=== PATIENT | male | born 1995 | race Caucasian/White ===

== ENCOUNTER 2024-03-04 12:15 | Emergency (ER) | payer SELFPAY ==
[2024-03-04] VITALS (22 sets, daily range): BP systolic 138–217; BP diastolic 60–87; PULSE 65–121; RESP 12–23; TEMP 37.2–37.3; O2SAT 86–100
--- NOTE | 2024-03-04 12:15 | RT.EKG_ITS ---
APPROVED REPORT Exam: Resting ECG Reason for Exam: chest pain Patient Location: E HR:120 bpm ECG Measurements Heart Rate 120 AXIS PA 161 P 66 QRSd 97 QRS 18 QT 326 T 28 QTc 461 Conclusion Sinus tachycardia...rate> 99 sinus tachycadrida, normal axis, normal intervals, non sichemic
--- NOTE | 2024-03-04 12:15 | DI.CT_ITS ---
Exam(s) CT CHEST PE CTA EXAM: CT CHEST PE CTA CLINICAL HISTORY: syncope, tachycardia, chest pain. TECHNIQUE: Imaging Protocol: Axial CT angiography was performed with multi-slice acquisition and mu lti-planar and/or 3D reconstructions. CONTRAST MATERIAL: Intravenous: Omnipaque 350 contrast volume:150 mL COMPARISON: No exams were available for comparison FINDINGS: Tracheobronchial tree: Patent where visualized. Pulmonary parenchyma: No consolidation or dominant measurable mass. No architectural distortion. Pulmonary Arteries: There is suboptimal enhancement of the pulmonary arteries secondary to bolus janet ng. The central pulmonary arteries show no large pulmonary embolism. The segmental and subsegmental pulmonary arteries are not well opacified. Mediastinum and Jodie: No dominant adenopathy or fluid collection. The esophagus is unremarkable. Visualized thyroid gland: Unremarkable. Pleura: No effusion or pneumothorax. Heart: The heart is not dilated. No coronary artery calcifications are seen. No pericardial effusion. Aorta: Thoracic aorta non-dilated. No evidence of dissection. Upper abdomen: Cholelithiasis. Soft tissues: Unremarkable. Bones: Within normal limits for the patient's age. IMPRESSION: 1. There is suboptimal enhancement of the pulmonary arteries. No large central pulmonary embolus is seen. No evidence of right heart strain. 2. No acute pulmonary process. 3. Cholelithiasis. RADIATION DOSE DELIVERED: 616.62mGy.cm Total DLP DATA REPOSITORY: All CT scans at this facility are submitted to the National Radiology Data Registry (NRDR) Dose Index Registry (DIR) with the [employer] ([employer]). RADIATION OPTIMIZATION: All CT scans at this facility use at least one of these dose optimization te chniques: automated exposure control; mA and/or kV adjustment per patient size (includes targeted exa ms where dose is matched to clinical indication); or iterative reconstruction.
--- NOTE | 2024-03-04 12:28 | ED.GENADUL_ITS ---
Discharge Plan Disposition Patient Disposition: Home Condition: Improving Discharge Details Chief Complaint: Chest Pain Clinical Impression: Chest pain Primary Care Provider: Unknown,Unknown ED Provider: Dhiraj Feldman Home Meds and New Rx's Prescriptions: No Action No Known Home Meds Discharge Instructions Instructions: Chest Pain (ED) HPI General Date/Time Provider Initiated Documentation: 03/04/24 12:18 . HPI Narrative: 28-year-old male presents with left-sided constant pressure-like chest discomfort over the last several days, associated with a syncopal episode yesterday unknown how long he was passed out for, denies shortness of breath denies leg pain or swelling denies history of cardiac disease or thromboembolic disease. No recent travel no recent trauma no recent surgeries. Psychosocial stressors involve job change as well as 2 young children. Related Data Home Medications Medication Instructions Recorded Confirmed Unknown [No Known Home Meds] 03/17/21 03/04/24 Allergies Allergy/AdvReac Type Severity Reaction Status Date / Time No Known Allergies Allergy Unverified 03/04/24 12:24 General Stated Complaint: Chest Pain SHUN: 2 Review of Systems Narrative: Review of Systems Constitutional: negative Eyes: negative ENT: negative Cardiovascular: Chest pain, syncope Respiratory: negative Gastrointestinal: negative : negative Musculoskeletal: negative Skin: negative Neurologic: negative Psych: negative Exam Narrative Exam Narrative: Physical Examination General: alert, awake, cooperative, resting comfortably, no acute distress HEENT: normocephalic, atraumatic; PERRL, EOM intact, conjunctiva normal; no nasal discharge; moist mucous membranes, oral and pharyngeal mucosa normal, tolerating secretions Neck: supple, trachea midline; full ROM Chest: normal to inspection Respiratory: normal respiratory effort, speaking in full sentences, clear to auscultation, no wheezing, rales or rhonchi Cardiac: Tachycardia, regular rhythm, S1S2 intact, no murmurs rubs or gallops GI: abdomen soft, non-tender, non-distended; no palpable mass or hepatosplenomegaly Skin: no lesions, rashes or trauma appreciated Neuro: AAOx3, normal speech, moving all extremities Extremities: No peripheral edema Psych: Appropriate mood and affect Course Vital Signs Vital signs: Vital Signs Temperature 37.3 C 03/04/24 12:18 Pulse 121 H 03/04/24 12:18 Respiratory Rate 22 03/04/24 12:18 Blood Pressure 217/79 H 03/04/24 12:18 Pulse Oximetry 100 03/04/24 12:18 Temperature 37.3 C 03/04/24 12:18 Temperature Source Skin 03/04/24 12:18 Pulse 121 H 03/04/24 12:18 Respiratory Rate 22 03/04/24 12:18 Respiratory Effort Normal, Non-Labored 03/04/24 12:24 Blood Pressure 217/79 H 03/04/24 12:18 Blood Pressure Position Sitting 03/04/24 12:18 Pulse Oximetry 100 03/04/24 12:18 Oxygen Delivery Method Room Air 03/04/24 12:18 Oxygen Flow Rate 0 03/04/24 12:18 Pain Level 3 03/04/24 12:18 Medical Decision Making 28-year-old male presents with left-sided constant pressure-like chest discomfort over the last several days, associated with a syncopal episode yesterday unknown how long he was passed out for, denies shortness of breath denies leg pain or swelling denies history of cardiac disease or thromboembolic disease. No recent travel no recent trauma no recent surgeries. Psychosocial stressors involve job change as well as 2 young children. Notable tachycardia and hypertension on arrival, patient afebrile nontoxic speaking full sentences no tachypnea no hypoxia. No peripheral edema. EKG sinus tachycardia normal axis normal intervals nonischemic. Must consider PE in the setting of chest pain and syncope versus less likely ACS versus less likely aortic pathology was also consider pneumothorax low suspicion for CHF. Must also consider anxiety versus costochondritis versus pleurisy. Will obtain screening labs CT chest, EKG, fluids, close reassessment. Consider analgesia and anxiolysis 15: 15 patient resting notably no acute distress. Chest pain-free. Labs and imaging unremarkable. Consider costochondritis versus pleurisy versus anxiety. Home care instructions and return precautions given Quality:SDOH Health Related Social Needs: No Data to Display PFSH All Active Problems (Updated 03/04/24 @ 15:15 by Dhiraj Feldman MD) Chest pain (Acute) Medical History Fractured tibia Heart murmur Surgical History (Updated 08/06/18 @ 14:35 by [employer] [facility] [place]) Tonsillectomy Tooth extraction Social History Smoking/Tobacco Use Status: Current every day Tobacco Type: smokeless tobacco Smoking risk assessment performed?: Yes Alcohol Intake: current Alcohol Intake frequency: 0-2 drinks per day Drug use: Never Substance use type: does not use
[2024-03-04 12:36] LABS: HCT 43.5 % (40.0-50.0); HGB 14.4 g/dL (13.5-17.5); MCH 29.6 pg (27.0-33.0); MCHC 33.1 % (32.0-36.0); MCV 90 fL (80-95); Platelet Count 199 10^3/uL (130-400); RBC 4.86 10^6/uL (4.36-5.78); RDW 12.8 % (11.8-14.1); RDW-SD 42.7 fL; WBC 10.47 10^3/uL (4.4-10.8)
[2024-03-04] MEDS: Omnipaque 350 MG/ML 100 ML BTL IJ (12:45)
[2024-03-04] MEDS: Normal Saline - Diluent 50 ML VIAL IJ (12:46)
[2024-03-04 13:02] LABS: PTT Activated 28.8 sec (23.6-32.8); Prothrombin Time 10.4 sec (9.1-11.1)
[2024-03-04 13:03] LABS: Absolute Basophil Count 0.21 10^3/uL (0.0-0.2); Absolute Lymphocyte Count 2.51 10^3/uL (1.2-3.4); Absolute Monocyte Count 0.73 10^3/uL (0.1-0.8); Absolute Neutrophil Count 7.01 10^3/uL (1.2-6.7); Diff Comment Manual Differential; RBC Morphology Normal
[2024-03-04 13:04] LABS: ALT 26 U/L (16-63); AST 13 U/L (15-37); Albumin 4.9 g/dL (3.4-5.0); Alkaline Phosphatase 85 U/L (46-116); BUN 9 mg/dL (7-18); Bilirubin, Total 0.7 mg/dL (0.2-1.0); CREATININE 0.9 mg/dL (0.70-1.30); Chloride 101 mmol/L (98-107); Estimated GFR 120.05 (mL/min/1.73m2); Glucose 110 mg/dL (74-106); NT-proBNP 25 pg/mL (<300); Potassium 3.8 mmol/L (3.5-5.1); Sodium 140 mmol/L (136-145); TSH (W/Ref FT4) 1.93 uIU/mL (0.36-3.74); Total Protein 8.6 g/dL (6.4-8.2); Troponin I < 50 ng/L (< or =60)
[2024-03-04] MEDS: Omnipaque 350 MG/ML 50 ML BTL IJ (13:13)
[2024-03-04] MEDS: Ketorolac 15 MG/ML VIAL IVP (13:31)
[2024-03-04] MEDS: LORazepam 2 MG/ML VIAL 0.5 MG IVP (13:31)
[2024-03-04] MEDS: Normal Saline 500 ML 1000 ML IV (13:31)
== END 2024-03-04 15:44 | disposition home or self-care (01) ==
PROVIDERS: Emergency Provider Emergency Medicine
DX: R07.9 Chest pain, unspecified (principal); R55 Syncope and collapse; R00.0 Tachycardia, unspecified; F17.290 Nicotine dependence, other tobacco product, uncomplicated
CPT/HCPCS: 36415; 71275; 80053; 93005; 96361; 96374; 96375; 99285; 83880; 84443; 84484; 85025; 85610; 85730; 93010; 99284; J1885; J2060; J3490; Q9967